=== PATIENT | female | born 1980 | race Caucasian/White ===

== ENCOUNTER 2016-10-23 16:09 | Inpatient (IN) | payer BC ==
[~2016-10-23] VITALS: Ht 172.7 cm; Wt 87.0 kg
--- NOTE | ~2016-10-23 | CO ---
ADMIT: 10/23/2016 RM/LOC: [address] [facility] MR#: [id number] [address] [place], [place] [address] [facility] [address] [place] [address] Consultation SEX: F AGE: 36 : 1980 DATE OF CONSULTATION: 10/24/2016 ATTENDING PHYSICIAN: Jarvis Keyes CONSULTING PHYSICIAN: Roel العراقي DPM CHIEF COMPLAINT: Right foot ulceration. HISTORY OF PRESENT ILLNESS: This patient presented to the emergency department with cellulitis and ulceration of the right foot. The patient has had some financial issues and had been noncompliant with her medications leading to really uncontrolled diabetes. The patient was seen in my office for ulceration care of the right foot first digit, which has not gotten any better. Approximately 3 days ago, the patient had redness, swelling, and pain of the right 3rd and 4th digits. The patient denies any fever or chills. She has been only intermittently keeping these ulcerations dressed. The patient did have some bloody drainage from the 3rd digit ulceration. ALLERGIES: NO KNOWN DRUG ALLERGIES. MEDICATIONS: Please see the chart for current medications. PAST MEDICAL HISTORY: Diabetes, peripheral vascular disease, peripheral neuropathy, chronic ulceration, cellulitis, and gangrene. PAST SURGICAL HISTORY: Amputation of the right foot first digit. SOCIAL HISTORY: Denies tobacco, alcohol, or drug abuse. The patient lives at home and is unemployed. FAMILY HISTORY: Noncontributory. REVIEW OF SYSTEMS: Negative except for stated above. PHYSICAL EXAMINATION: VITAL SIGNS: Temp is 97.9, pulse 98, respirations 16, blood pressure 150/99, and O2 is 94% on room air. VASCULAR: DP and PT pulses are faintly palpable bilaterally. Decreased air growth bilaterally. Capillary refill time is approximately 4 seconds bilaterally. NEUROLOGIC: Light touch sensation is absent to the foot bilaterally. DERMATOLOGIC: The patient has an ulceration of the right foot first digit at the proximal phalanx stump plantarly. The patient's ulceration measures 1.5 x 2.0 x 0.4 cm. There is undermining at the 6 o'clock position extending 1 cm and does probe to bone. There is significant callus formation at the wound edge. No surrounding erythema or increased warmth. The ulceration between a third and fourth digits on the right measures in total 3.0 x 0.2 cm. There is a much deeper portion of the ulceration at the essential aspect, which measures approximately 0.3 x 0.3 x 3 cm there is exposure of bone and joint capsule of the wound base and does probe to the dorsal surface of the foot. ADMIT: 10/23/2016 RM/LOC: [address] [facility] MR#: [id number] [address] [address] [facility] DR[facility]COLL [address] [place] [address] Consultation SEX: F AGE: 36 : 1980 The patient has erythema to the 3rd and 4th digits, which extends approximately 1 cm to the dorsal foot. Some malodor and some bloody purulent drainage is expressed. MUSCULOSKELETAL: The patient does have some pain on palpation of the ulceration of the right 3rd and 4th digits. The patient has no pain on palpation of the right first digit. LABORATORY DATA: Sodium 137, potassium 3.8, BUN is 9, creatinine is 0.7, white count is 7.5, hemoglobin 8.5, hematocrit 26.6, and platelets 272. Procalcitonin is less than 0.05. Lactic acid is 0.6. X-ray and MRI are pending. ASSESSMENT: 1. Cellulitis. 2. Ulceration. 3. Probable osteomyelitis. 4. Diabetes. 5. Peripheral vascular disease. 6. Peripheral neuropathy. PLAN: Due to the patient's nausea related to antibiotics and her complex history, we will recommend an Infectious Disease consult. Bedside debridement using a 15 blade and pickup was performed down to and including the subcutaneous tissue. We will recommend that the patient have an MRI, which will be performed Wednesday to determine if there is bony involvement in the extent of the infection. We will likely need debridement in the OR and possible amputation of the right first digit. The patient's questions were answered in detail. We will follow up with the results as they become available. Cultures were taken at the time of debridement. Hope to take her to the OR approximately Wednesday. Roel العراقي DPM/ ashley JOB #: [id number] CC: Jarvis Keyes, Attending Physician Jarvis Keyes, Family Physician
--- NOTE | ~2016-10-23 | WND ---
ADMIT: 10/23/2016 RM/LOC: 518 [facility] MR#: [id number] 2620 [facility] [address] [place], [place] [address] [place] DR[facility]CO[facility] [address] [place] [address] Wound Care Clinic SEX: F AGE: 36 : 1980 DATE OF VISIT: 10/26/2016 TIME OF VISIT: 40 minutes. HISTORY OF PRESENT ILLNESS: Marlin is a 36-year-old, noncompliant type 2 diabetic who has not been taking her insulin, who presented to the emergency room on October 23, 2016, for a red right foot. She was found to have cellulitis, a urinary tract infection, and anemia and admitted to the hospital for IV antibiotics. Marlin reports that she had a partial right great toe amputation in January of 2016 by [facility] Dyer, Dr. العراقي. She does state that that healed well. She reports that she just noticed increased redness beginning Wednesday. She states that the ulcer on the plantar surface of her right great toe has been there for a few months. She denies any complaints of fever or chills. PAST MEDICAL HISTORY: Positive for diabetes mellitus type 2 again not taking any insulin. PAST SURGICAL HISTORY: Partial amputation of her right great toe secondary to cellulitis and gangrene in January of 2016. SOCIAL HISTORY: She denies any tobacco or alcohol use. She denies illicit drug use. She is unemployed. She reports that she has 3 teenage children. Her works part time receptionist. ALLERGIES: No known medication allergies. CURRENT MEDICATIONS: 1. Feosol DPS 325 mg. 2. Lopressor DPS 50 mg. 3. Levemir 30 units b.i.d. 4. NovoLog sliding scale. 5. Zosyn. REVIEW OF SYSTEMS: Please see HPI. She is nauseated as I am visiting her and having some dry heaves. PHYSICAL EXAMINATION: VITAL SIGNS: Temperature 97.5 degrees Fahrenheit, pulse 88, respirations 28, blood pressure 155/99, and pulse ox 94% on room air. GENERAL: Marlin is an alert and oriented x3, 36-year-old female, in no acute distress. She is quite tearful during my examination. She has a full- thickness ulcer on the plantar surface of her amputated right hallux that measures 1.5 cm in length x 2 cm in width x 0.5 cm in depth. Wound bed is red and dry. Some periwound erythema extending out to approximately 0.2 cm circumferential. The 3rd intermetatarsal space has a full-thickness ulcer that measures 0.3 cm in length x 2.5 cm in width x 1.5 cm in depth. Periwound skin is macerated. ADMIT: 10/23/2016 RM/LOC: 518 [facility] MR#: [id number] [address] [address] [place] DRISCOLL S [address] [place] [address] Wound Care Clinic SEX: F AGE: 36 : 1980 I did remove dressings from both of these wound beds that were iodine soaked gauze. 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 PLAN: An MRI of the right foot was completed. Dr. العراقي is going to take the patient back to surgery and dictate, which dressing changes will be done. I washed her right foot with warm soapy water, rinsed and patted dry. I reapplied iodine ribbon gauze into the wound bed and then applied gauze and secured with Sidney and Kerlix. The patient tolerated the procedure well. We will follow up as needed. Sheba Dye APRN/ ashley JOB #: [id number] CC: Jarvis Keyes, Attending Physician Jarvis Keyes, Family Physician
[~2016-10-23 16:09] MED LIST: ASCORBIC ACID500 MG PO; FEOSOL-DPS325 MG PO; GLUCOPHAGE-DPS500 MG PO; HUMALOG100 UNIT/1 SQ; LEVEMIR100 UNIT/1 SQ; MOTRIN-DPS600 MG PO; NORCO 5-325 TA1 EACH PO; NORVASC5 MG PO; VIBRAMYCIN-DPS100 M2 PO; ZESTRIL DPS40 MG PO
--- NOTE | 2016-10-25 09:07 | HP ---
ADMIT: 10/23/2016 RM/LOC: 518 [facility] MR#: [id number] [address] [facility] [address] [place], [place] [address] [facility] Par[facility] [address] [place] [address] History and Physical SEX: F AGE: 36 : 1980 DATE OF SERVICE: CHIEF COMPLAINT: Swelling and pain in the right foot. HISTORY OF PRESENT ILLNESS: A 36-year-old female with no primary care physician, presented to the emergency room with pain in the right foot. She is found to have cellulitis and deep ulcerations on her right foot. She is admitted for treatment of this through [facility]. She has history of diabetes mellitus type 2, but has been noncompliant. She has been seeing Dr. Roel العراقي, survey questionnaire designer, and she says she last saw him 3 weeks ago for ulceration under her right great toe stump. She has not been taking any medications. Her daughter is an insulin-dependent diabetic, and she occasionally uses some of her daughter's insulin, but she has not taken any for several weeks. She denies any polyuria or polydipsia. She denies any fever. States she has had no history of hypertension. Additionally, denies any dysuria. In the emergency room, the UA showed pyuria and her blood pressure in the floor is 177/111. ALLERGIES: NONE. MEDICATIONS: None. PAST MEDICAL HISTORY: Positive for diabetes mellitus type 2, but no treatment as she does not seen any physicians for this. She has had previous hospitalization in January of 2016 where she had partial amputation of her right great toe due to cellulitis and gangrene. SOCIAL HISTORY: Does not use tobacco or alcohol. Denies any drug use. Unemployed. FAMILY HISTORY: Unknown. REVIEW OF SYSTEMS: GENERAL: She denies any complaints or problems. She has had a slight cough recently, but nonproductive. No fever. Denies any headache or visual change. PULMONARY: Nonproductive cough. No chest pain. CARDIAC: Denies any history of hypertension. No chest pain. GI: Negative. : Denies any urgency, frequency, or dysuria. MUSCULOSKELETAL: Other than right foot pain for the last several weeks, she has not had any other problems. Rest of review of systems negative. PHYSICAL EXAMINATION: GENERAL: A 36-year-old female. She is alert, cooperative, and oriented x3. VITAL SIGNS: BP is 177/111, pulse is 80 and regular, respiratory rate is 22, and temp is 98.2. HEENT: Eyes, PERRLA. EOMs intact. TMs not seen. Throat is moist, not inflamed. NECK: Supple. ADMIT: 10/23/2016 RM/LOC: 518 [facility] MR#: [id number] [address] [address] [place] DRISCOLL [address] [place] [address] History and Physical SEX: F AGE: 36 : 1980 LUNGS: Clear. HEART: Regular rate. No murmur. ABDOMEN: Negative. : Deferred. RECTAL: Deferred. EXTREMITIES: She has some edema of the dorsum of her right foot. Peripheral pulses are intact. The right great toe has been amputated on the distal aspect. The toe stump is inflamed and swollen. Underneath the toe on the ventral aspect, there is a full skin thickness 2 cm diameter ulceration. Between the 3rd and 4th toe on the right foot, there is erythema and purulent drainage with skin breakdown deep in that area. There is redness in the dorsum of the foot, but no lymphangitic streaking. Left foot appears to be intact other than a black left great toenail due to apparent trauma. DIAGNOSTIC IMPRESSION: 1. Cellulitis with deep ulceration, right foot on the great toe stump. 2. Status post previous partial amputation of the right great toe. 3. Diabetes mellitus type 2, noncompliant. 4. Probable diabetic neuropathy. 5. Pyuria, rule out urinary tract infection. 6. Hypertension, but no history of this. 7. Probable peripheral vascular disease. 8. Anemia, hemoglobin was 9.9. PLAN: She has been cultured in the emergency room, both urine and blood. She was given IV Zosyn in the emergency room. We will continue IV Zosyn, add IV vancomycin. Consult Dr. العراقي. IV fluids. Started on oral beta-betty. IV hydralazine as needed for blood pressure, placed on telemetry. Evaluate her anemia. Jarvis Keyes MD/ ashley JOB #: [id number] CC: Jarvis Keyes, Attending Physician UNKNOWN, Family Physician
--- NOTE | 2016-10-27 07:57 | CO ---
ADMIT: 10/23/2016 RM/LOC: 518 [facility] MR#: [id number] 2620 [facility] [address] [place], [place] [address] LEXI RIVERS [address] [place] [address] Consultation SEX: F AGE: 36 : 1980 DATE OF CONSULTATION: 10/25/2016 ATTENDING PHYSICIAN: Jarvis Keyes CONSULTING PHYSICIAN: Tracey Hernandez MD REASON FOR CONSULTATION: Foot ulcer. HISTORY OF PRESENT ILLNESS: Ms. Rivers is a 36-year-old white female, who gets her care through the [facility] who was admitted to [facility] after being seen in the emergency room with progressive pain and discomfort in her right foot. In the ER, she was found to have evidence of redness and erythema of the foot as well as deep ulceration of her right foot. She has been having follow up with Dr. العراقي and was last seen by him approximately 3 weeks ago. She has evidence of an ulceration under her right great toe stump. She is status post amputation, partial of her right great toe due to cellulitis and gangrene. She has a known history of diabetes, noncompliance, hospitalization in 2016 with amputation, history of hypertension, peripheral vascular disease, hyperglycemia, anemia, and peripheral neuropathy. She at this time is admitted for continued evaluation and care. We were asked to see and assist with IV antibiotics. PAST MEDICAL HISTORY: She has as above of noncompliance, hyperglycemia, status post partial amputation of right great toe with evidence of recurrent cellulitis and gangrene, hypertension, history of peripheral vascular disease, hyperglycemia, anemia, history of neuropathy. SOCIAL HISTORY: Does not smoke or drink. Denies any drug use. She is unemployed. FAMILY HISTORY: Unknown. REVIEW OF SYSTEMS: She has had no complaints of lightheadedness, dizziness, anterior chest pain, chest pressure, increasing shortness of breath, or respiratory distress. Progressive pain and discomfort in her right foot. PHYSICAL EXAMINATION: GENERAL: She is alert, articulate. HEENT: Exam was normal. HEART: Regular rhythm. LUNGS: Clear, but diminished to auscultation. ABDOMEN: Soft, nontender, nondistended. EXTREMITIES: No evidence of edema. Her right foot is in a large bulky dressing. LABORATORY DATA: Sodium 130, potassium 4.1, BUN and creatinine 14 and 1.2. Blood sugar 400, currently 284. Alkaline phosphatase of 194. Her magnesium was normal. Her iron level was 21, total iron-binding capacity 278, pre-albumin 15.2. Cardiac enzymes were negative. Troponin was negative. Her pro-time was 8.9. White blood cell count 8.2, hemoglobin 9.9, and platelet count 297. ADMIT: 10/23/2016 RM/LOC: 518 [facility] MR#: [id number] [address] [address] LEXI RIVERS S [address] [place] [address] Consultation SEX: F AGE: 36 : 1980 Lactic acid of 0.05. Hemoglobin A1c of 14.5. Urinalysis showed 3+ protein, greater than 1000 glucose, 2+ blood, 2+ leukocytes, culture is pending. ASSESSMENT: Admission of a 36-year-old white female, an Infectious Disease consultation for evidence of cellulitis, ulcerations, concerns about possible osteomyelitis of her distal right foot, history of great toe partial amputation in the past, diabetes, peripheral vascular disease, history of peripheral neuropathy. At this time, we will await for further assessment, Gram-positive cocci on culture. We will continue with her current dose of Zosyn and vancomycin. Her MRI is pending. We will continue close followup. Tracey Hernandez MD/ ashley JOB #: [id number] CC: Jarvis Keyes, Attending Physician Jarvis Keyes, Family Physician
--- NOTE | 2016-10-29 16:03 | OR ---
ADMIT: 10/23/2016 RM/LOC: 518 [facility] MR#: [id number] 2620 [facility] [address] [place], [place] [address] L[place] DRISCOLL [address] [place] [address] Operative/Delivery Room Report SEX: F AGE: 36 : 1980 SURGERY DATE: 10/27/2016 SURGEON: Roel العراقي DPM REFUELING RAMP SUPERVISOR: None. PREOPERATIVE DIAGNOSIS: Cellulitis, ulceration, and abscess of the right foot. POSTOPERATIVE DIAGNOSIS: Cellulitis, ulceration, and abscess of the right foot. PROCEDURE: Incision and drainage with debridement of soft tissue of the right foot first digit and third intermetatarsal space. ANESTHESIA: MAC with local per the anesthesia team. COMPLICATIONS: None. SPECIMENS: Culture and sensitivity and Gram stain x2. ESTIMATED BLOOD LOSS: Less than 5 mL. FLUID REPLACEMENT: Per Anesthesia. HEMOSTASIS: None. INJECTIONS: 10 mL of 0.5% Marcaine plain. MATERIALS: None. PREOPERATIVE STATEMENT: This patient was seen in the hospital for ulceration, cellulitis, and abscess. The patient received an MRI and confirmed no obvious osteomyelitis. It was determined at this time to improve the chances of healing and reduce the risk of overwhelming infection. The patient would require incision and drainage and debridement in a surgical fashion. The patient was seen in the preoperative area. The consent was reviewed with the patient including the risks and benefits of the procedure. The patient's questions were answered in detail, and the consent was noted to be signed and placed on the chart. The H and P was up-to-date. The labs, EKGs, and x-rays were reviewed, and there were no contraindications to surgery at this time. OPERATIVE REPORT: This patient was brought back to the operating room under light sedation and placed on operating table in the supine position. A well- padded ankle tourniquet was placed about the patient's right ankle, but not inflated. The time-out was performed. The site marking was noted when all in agreement. The foot was prepped and draped in a normal aseptic technique and the procedure was underway. ADMIT: 10/23/2016 RM/LOC: 518 [facility] MR#: [id number] [address] [place], [place] [address] LEXI DRISCOLL [address] [place] [address] Operative/Delivery Room Report SEX: F AGE: 36 : 1980 Using a rongeur, curette and 15 blade, sharp surgical debridement was performed down to and including muscle and tendon of the first digit and third intermetatarsal space of the right foot. The sites were then irrigated with 3 L of sterile saline with bacitracin using a Pulsavac. After irrigation, the sites were inspected for any remaining nonviable tissue, and there was noted to be none. The sites were then packed with iodoform gauze, covered with gauze, Kerlix, and an David wrap, and she was transferred to the recovery room. The patient was transferred to the recovery room with vital signs stable and neurovascularly intact. The patient is to be returned to the inpatient status, so will continue to receive IV antibiotics under the direction of Infectious Disease. She is to continue to have the wound packed daily, and we will continue to follow her as an inpatient. Roel العراقي DPM/ ashley JOB #: [id number] CC: Jarvis Keyes, Attending Physician Jarvis Keyes, Family Physician
--- NOTE | 2016-10-30 16:04 | CO ---
ADMIT: 10/23/2016 RM/LOC: 518 [facility] MR#: [id number] 2620 [facility] [address] [place], [place] [address] [facility] [address] [place] [address] Consultation SEX: F AGE: 36 : 1980 DATE OF CONSULTATION: 10/27/2016 ATTENDING PHYSICIAN: Jarvis Keyes CONSULTING PHYSICIAN: Manuel Ocampo MD REASON FOR CONSULTATION: Acute kidney injury. HISTORY OF PRESENT ILLNESS: The patient is a pleasant 36-year-old female, who has a history of type 2 diabetes mellitus. She has had little by way of medical care and was not following up with anyone for her diabetic care. She presented to the emergency room 4 days ago with a right foot ulcer. She had been seeing Podiatry for that previously. She is being treated for antibiotics and is being planned for a debridement later today. Initially, she was treated with vancomycin and Zosyn. She was evaluated by Infectious Disease yesterday and was started on Unasyn. Her serum creatinine at the time of admission was normal at 0.6. It was 0.7 the day after, 1.2 yesterday, and 2.3 this morning. She has been nonoliguric. She denies any urinary complaints. She is constipated. She complains of some pain and discomfort in her right foot. Otherwise she has no complaints. REVIEW OF SYSTEMS: A complete review of systems is negative in detail except as mentioned in history of present illness above. PAST MEDICAL HISTORY: Type 2 diabetes mellitus. As stated above, she has had little by way of medical care. It is unclear if she has any other chronic illnesses. ALLERGIES: NO KNOWN DRUG ALLERGIES. MEDICATIONS: Reviewed in the chart next. SOCIAL HISTORY: Unemployed. She is . She lives with her and her 2 kids. Denies any tobacco, alcohol, or recreational drug use. PHYSICAL EXAMINATION: VITAL SIGNS: Temperature 97 Fahrenheit, pulse 92, blood pressure 161/88. She has not had any documented hypotensive episodes. She is saturating 92% on room air. She has made about 1.7 L of urine yesterday. GENERAL: She is comfortable in her bed. HEENT: Head is nontraumatic and normocephalic. She has pale conjunctivae. Dry mucosa. CHEST: Clear to auscultation. CVS: Regular rhythm. S1, S2 heard. No rubs, murmurs, or gallops. ABDOMEN: Soft and nontender. EXTREMITIES: 1+ bilateral lower extremity edema. MUSCULOSKELETAL: Major joints within normal limits. Her right foot and lower leg is wrapped in a bandage. SKIN: No rash or nodules. ADMIT: 10/23/2016 RM/LOC: 518 [facility] MR#: [id number] [facility] [address] [address] LEXI DRISCOLL S [address] [place] [address] Consultation SEX: F AGE: 36 : 1980 NEUROLOGIC: She is alert, awake, and oriented x3. She is able to move all her extremities. LABORATORY DATA: Reviewed. BMP with sodium 141, potassium 4.1, CO2 of 21, creatinine 2.3. Trend of serum creatinine outlined above. Calcium 7.8. Hemoglobin 8.4. Her vancomycin trough yesterday was 31.8. ASSESSMENT AND PLAN: Acute kidney injury - the leading differential diagnosis includes acute tubular necrosis secondary to vancomycin nephrotoxicity versus allergic interstitial nephritis from her antibiotics and possibly penicillins. I will check urine studies to evaluate her kidney function further. I will also obtain a renal ultrasound to evaluate renal architecture and evaluate for any obstructive changes. Discontinue any nonessential medications and simplify her regimen. I discussed her antibiotic plan with Infectious Diseases today. We plan to continue her Unasyn for a day or two and monitor her kidney function. I will check a vancomycin level in the morning. If her kidney function does not improve over the next 24-48 hours, we will switch her antibiotics to possibly daptomycin. Should she not have recovery on her kidney function, she may need a diagnostic kidney biopsy as well. Thank you for this consultation and allowing me the opportunity to participate in this patient's care. Please do not hesitate to contact me with any questions. Manuel Ocampo MD/ ashley JOB #: [id number] CC: Jarvis Keyes, Attending Physician Jarvis Keyes, Family Physician
[2016-11-01] MEDS ORDERED: LOPRESSOR DPS100 MG PO (12:14)
[2016-11-01] MEDS ORDERED: MILK OF MAGNESI10 ML PO (12:16)
[2016-11-01] MEDS ORDERED: TYLENOL DPS325 MG PO (12:17)
[2016-11-01] MEDS ORDERED: BUMETANIDE2 MG PO (12:18)
[2016-11-01] MEDS ORDERED: ZYVOX600 MG PO (12:19)
--- NOTE | 2016-11-03 21:14 | ER ---
ADMIT: 10/23/2016 RM/LOC: 518 [facility] MR#: [id number] [address] [facility] [address] [place], [place] [id number] LEXI DRISCOLL Parrish [address] [place] [address] Emergency Room Report SEX: F AGE: 36 : 1980 DATE: 10/23/2016 ADDENDUM: CHIEF COMPLAINT: Red erythemic right foot. HISTORY OF PRESENT ILLNESS: This is a 36-year-old, noncompliant diabetic. In fact, she says she does take insulin occasionally but does not have a doctor. When asked her more questions about that, she says that she gets her insulin from her daughter. Denies any other medication use. ALLERGIES: NO KNOWN ALLERGIES. SOCIAL HISTORY: Denies any tobacco, drug, or alcohol use. FAMILY HISTORY: Noncontributory. REVIEW OF SYSTEMS: CONSTITUTIONAL: Denies any fevers, chills, or sweats. CARDIOVASCULAR AND RESPIRATORY: Denies any chest pain or shortness of breath. GI AND : Denies any nausea, vomiting, diarrhea, or abdominal pain. EXTREMITIES: The only complaint that she has is right foot pain with diabetic ulcer on her plantar side of her right foot and also a new wound developing between the 3rd and 4th toes with some cellulitis and swelling. EMERGENCY ROOM COURSE I did a sepsis protocol, a liter of fluids has been given and now she is at 50 mL/h. Zosyn also has been given down here in the emergency room. Her lactic acid was 0.6. Her CMP is normal except for sodium 133, glucose 406, albumin 2.4, alkaline phos is 194. Her cardiac enzymes were all normal. CBC was normal except for hemoglobin of 9.9. UA showed 3+ protein over 1000 glucose, 2+ blood, 7 white blood cells, and 2+ leukocyte esterase. We will do a culture set up on the urine. Lactic acid 0.6. PT/INR normal. Procalcitonin is less than 0.05. CLINICAL IMPRESSION: 1. Diabetic ulcers to right foot with cellulitis. 2. Urinary tract infection. 3. Anemia. DISPOSITION: The patient is being admitted as city [facility] to Dr. Keyes. HOLLIS Mojica / Michael Gilmore MD / modl JOB #: [id number] CC: Jarvis Keyes MD, Attending Physician UNKNOWN, Family Physician
--- NOTE | 2016-11-06 07:48 | DS ---
ADMIT: 10/23/2016 RM/LOC: 518 [facility] MR#: [id number] [address] [facility] [address] [place], [place] [id number] MOLLY DRISCOLL [address] [place] [address] General Discharge Summary SEX: F AGE: 36 : 1980 ADMISSION DATE: 10/23/2016 DISCHARGE DATE: 10/30/2016 ADMITTING DIAGNOSES: Cellulitis and gangrenous ulcerations, right foot. DISMISSAL DIAGNOSES: Cellulitis and gangrenous ulcerations, right foot. COMPLICATING DIAGNOSES: Diabetes mellitus type 2, noncompliant, probable diabetic neuropathy, acute renal insufficiency secondary to medication, anemia of chronic disease. CHIEF COMPLAINT AND HISTORY OF PRESENT ILLNESS: See history and physical for details. A 36-year-old female with no primary care physician, who presented to emergency room with pain in right foot. She was found to have cellulitis and deep ulcerations, right foot. She is admitted for treatment of this through [facility]. She has a history of diabetes mellitus type 2 but has been noncompliant on no medications. She has been seeing Dr. العراقي, inspector [employer], for ulceration on her right foot underneath her great toe stump. 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 She has not been taking any medication. Her daughter is insulin-dependent diabetic and she occasionally uses some of her daughter's insulin but not taken any for several weeks. She denies any polyuria or polydipsia. She denies any history of hypertension, but her blood pressure on admission was 177/111. Her hemoglobin A1c was above 14. CONSULTANTS: Roel العراقي DPM; Manuel Ocampo MD; and Oanh Esteves MD. LABORATORY REPORTS: Please see lab summary sheets for details. COURSE IN THE HOSPITAL: Molly was admitted, cultures obtained, started on IV fluids, sliding scale insulin. Started on IV Zosyn, IV vancomycin, Coreg for her blood pressure, hydralazine IV for immediate control of her blood pressure, Zofran for nausea, Lortab for pain. Sliding scale insulin was instituted. Serum creatinine was 0.6 on admission and she was dosed on vancomycin per pharmacy. Iron levels were low, consistent with chronic disease anemia. Dr. العراقي did do debridement of the necrotic areas in the foot. She did require Levemir insulin in addition to the sliding scale insulin to control her blood sugars. Wound Care was consulted. Dressings were changed. Dr. Esteves was consulted and she discontinued the Zosyn and vancomycin and placed her on Unasyn IV 3 g q.6 hours. Due to elevation of her serum creatinine was the reason for the medication changes. Dr. Ocampo saw her in consultation. Her creatinine had risen to 2.3. With medication changes and hydration, her creatinine did drop to 2.1 the following day, and the next day 2.0. She was continued with sliding scale insulin. She was instructed on self-administration of her Levemir insulin. She was dismissed, ADMIT: 10/23/2016 RM/LOC: 518 [facility] MR#: [id number] [address] [place] [id number] MOLLY DRISCOLL [address] [place] [address] General Discharge Summary SEX: F AGE: 36 : 1980 to follow up in 4-[address] Muhammad for recheck of her labs. She is to follow up with Dr. Ocampo and Dr. Esteves in 1 week. DISCHARGE MEDICATIONS: Medications at dismissal were: 1. Iron 325 mg b.i.d. 2. Lopressor 100 mg b.i.d. 3. Levemir 15 units q.12 hours. 4. Bumex 2 mg p.o. daily. FOLLOWUP: Follow up with Dr. العراقي in a week for wound. She is not to have any NSAIDS. She is to be on antibiotics per Infectious Disease training consultant. Jarvis Keyes MD/ ashley JOB #: [id number] CC: Jarvis Keyes MD, Attending Physician Jarvis Keyes MD, Family Physician
== END 2016-10-30 15:40 | disposition home or self-care (01) | DRG 264 ==
LOC: ER 16:09 → 5MS 16:35
PROVIDERS: ADMIT Family Medicine
PROC: 0JBQ0ZZ Excision of Right Foot Subcutaneous Tissue and Fascia, Open Approach (ICD-10-PCS; principal; 2016-10-24)
PROC: 0KBV0ZZ Excision of Right Foot Muscle, Open Approach (ICD-10-PCS; 2016-10-27)
DX: E11.52 Type 2 diabetes mellitus with diabetic peripheral angiopathy with gangrene (principal); N17.0 Acute kidney failure with tubular necrosis; L03.115 Cellulitis of right lower limb; J98.11 Atelectasis; N39.0 Urinary tract infection, site not specified; E11.42 Type 2 diabetes mellitus with diabetic polyneuropathy; E11.621 Type 2 diabetes mellitus with foot ulcer; T36.8X5A Adverse effect of other systemic antibiotics, initial encounter; R09.02 Hypoxemia; N14.1 Nephropathy induced by other drugs, medicaments and biological substances; D63.8 Anemia in other chronic diseases classified elsewhere; D50.9 Iron deficiency anemia, unspecified; L97.513 Non-pressure chronic ulcer of other part of right foot with necrosis of muscle; E11.65 Type 2 diabetes mellitus with hyperglycemia; I10 Essential (primary) hypertension; I73.9 Peripheral vascular disease, unspecified; Z91.19 Patient's noncompliance with other medical treatment and regimen; Z91.120 Patient's intentional underdosing of medication regimen due to financial hardship; Z89.411 Acquired absence of right great toe